=== PATIENT | male | born 1985 | race American Indian/Alaskan Native ===

== ENCOUNTER 2017-05-25 01:30 | Emergency (ER) | payer OTHER ==
[~2017-05-25] VITALS: Ht 195.6 cm; Wt 129.4 kg
[2017-05-25] MEDS ORDERED: LIDOCAINE 1%, 20ML ONE (02:04)
[2017-05-25] MEDS ORDERED: BACITRACIN ZINC OINT 500U/GM, 0.9 GM ONE ×2 (03:49→03:50)
[2017-05-25 03:53] VITALS: BP 129/76
== END 2017-05-25 03:55 | disposition home or self-care (01) ==
LOC: ED 03:49
DX: S01.81XA Laceration without foreign body of other part of head, initial encounter (principal); W21.07XA Struck by softball, initial encounter; Y93.89 Activity, other specified; Y92.89 Other specified places as the place of occurrence of the external cause; Y99.8 Other external cause status
CPT/HCPCS: 12014